=== PATIENT | female | born 1985 | race Caucasian/White ===

== ENCOUNTER → 2021-09-14 | Outpatient (CLI) | payer OTHER ==
[~2021-09-14] MED LIST: COLA100C5 PO; FLINCHW7 PO; IBUP80TA PO; OXYC1TAB23 PO; PERC5TAB PO; PERC5TAB12 PO; VITAPRTA PO
[2021-09-14 15:23] LABS: BASO % 0.4 % (0.0-1.0); EOS # 0.1 10^3/uL (0.0-0.5); EOS % 1.4 % (0.0-3.0); HEMATOCRIT 36.7 % (36.0-47.0); HEMOGLOBIN 12.2 g/dl (12.0-15.5); LYMPH # 2.5 10^3/uL (1.5-5.0); LYMPH % 25.1 % (24.0-44.0); MEAN CORPUSCULAR HEMOGLOBIN 30.5 pg (27.0-33.0); MEAN CORPUSCULAR HGB CONC 33.2 g/dl (32.0-36.5); MEAN CORPUSCULAR VOLUME 91.8 fl (80.0-96.0); MONO # 0.7 10^3/uL (0.0-0.8); MONO % 7.1 % (2.0-8.0); NEUTROPHILS # 6.6 10^3/uL (1.5-8.5); NEUTROPHILS % 65.5 % (36.0-66.0); PLATELET COUNT, AUTOMATED 300 10^3/uL (150-450)
[2021-09-14 15:47] LABS: CREATININE,RANDOM URINE 92.2 MG/DL; TOTAL PROTEIN,RANDOM URINE 21.2 MG/DL (0.0-12.0)
[2021-09-14 15:48] LABS: ALT/SGPT 31 U/L (12-78); BILIRUBIN,TOTAL 0.2 MG/DL (0.2-1.0); CREATININE FOR GFR 0.65 MG/DL (0.55-1.30); GLOMERULAR FILTRATION RATE > 60.0 (>60); LDH LACTATE DEHYDROGENASE 154 U/L (84-246); URIC ACID 3.6 MG/DL (2.6-6.0)
[2021-09-14 16:37] LABS: HEPATITIS C VIRUS ABY INDEX 0.1 INDEX (<0.8)
[2021-09-14 16:38] LABS: HIV 1&2 SCREEN CENTAUR NEGATIVE (NEGATIVE)
[2021-09-14 16:57] LABS: GC DNA AMPLIFICATION NEGATIVE (NEGATIVE)
== END ==
LOC: M PLALAB 14:05
PROVIDERS: ATTEND Advanced Practice Midwife
DX: O09.292 Supervision of pregnancy with other poor reproductive or obstetric history, second trimester (principal)

== ENCOUNTER → 2021-10-11 | Outpatient (REF) | payer OTHER | LOC: M SFHCWAGY 13:39 | PROVIDERS: ATTEND Obstetrics & Gynecology | DX: Z34.92 Encounter for supervision of normal pregnancy, unspecified, second trimester (principal) ==

== ENCOUNTER → 2021-10-11 | Outpatient (CLI) | payer OTHER | LOC: M WHC 08:39 | PROVIDERS: ATTEND Advanced Practice Midwife | DX: O09.292 Supervision of pregnancy with other poor reproductive or obstetric history, second trimester (principal); Z3A.19 19 weeks gestation of pregnancy ==

== ENCOUNTER → 2021-12-06 | Outpatient (CLI) | payer OTHER ==
[2021-12-06 15:47] LABS: HEMATOCRIT 33.8 % (36.0-47.0); HEMOGLOBIN 11.3 g/dl (12.0-15.5); MEAN CORPUSCULAR HEMOGLOBIN 31.9 pg (27.0-33.0); MEAN CORPUSCULAR HGB CONC 33.4 g/dl (32.0-36.5); MEAN CORPUSCULAR VOLUME 95.5 fl (80.0-96.0); PLATELET COUNT, AUTOMATED 285 10^3/uL (150-450); RED BLOOD COUNT 3.54 10^6/uL (4.00-5.40); WHITE BLOOD COUNT 8.1 10^3/uL (4.0-10.0)
== END ==
LOC: M PLALAB 11:30
PROVIDERS: ATTEND Advanced Practice Midwife
DX: O09.522 Supervision of elderly multigravida, second trimester (principal); Z3A.00 Weeks of gestation of pregnancy not specified

== ENCOUNTER → 2022-02-07 | Outpatient (REF) | payer OTHER | LOC: M SFHCWAGY 17:03 | PROVIDERS: ATTEND Obstetrics & Gynecology | DX: O34.211 Maternal care for low transverse scar from previous cesarean delivery (principal) ==

== ENCOUNTER → 2022-02-22 | Outpatient (CLI) | payer OTHER ==
[~2022-02-22] MED LIST changes: +ASPI81CH33 PO
== END ==
LOC: M LABSMTC 09:35
PROVIDERS: ATTEND Anesthesiology
DX: Z01.812 Encounter for preprocedural laboratory examination (principal); Z11.52 Encounter for screening for COVID-19

== ENCOUNTER → 2022-07-25 | Outpatient (REF) | payer OTHER ==
[~2022-07-25] MED LIST changes: +PERCOCET PO
== END ==
LOC: M SFHCWAGY 17:38
PROVIDERS: ATTEND Obstetrics & Gynecology
DX: Z01.419 Encounter for gynecological examination (general) (routine) without abnormal findings (principal)

== ENCOUNTER → 2024-06-09 | Outpatient (CLI) | payer OTHER ==
[2024-06-09 17:24] LABS: HEMATOCRIT 37.2 % (36.0-47.0); MEAN CORPUSCULAR HEMOGLOBIN 31.2 pg (27.0-33.0); MEAN CORPUSCULAR HGB CONC 34.9 g/dl (32.0-36.5); MEAN CORPUSCULAR VOLUME 89.2 fl (80.0-96.0); PLATELET COUNT, AUTOMATED 301 10^3/uL (150-450); RED BLOOD COUNT 4.17 10^6/uL (4.00-5.40); WHITE BLOOD COUNT 9.7 10^3/uL (4.0-10.0)
[2024-06-09 17:51] LABS: TOTAL PROTEIN,RANDOM URINE 45.5 MG/DL (0.0-14.0)
[2024-06-09 17:55] LABS: URIC ACID 4.3 MG/DL (3.1-7.8)
[2024-06-09 17:56] LABS: CREATININE,RANDOM URINE 156.1 MG/DL
[2024-06-09 17:57] LABS: LDH LACTATE DEHYDROGENASE 157 U/L (120-246)
[2024-06-09 17:58] LABS: ALT/SGPT 15 U/L (7.0-40); AST/SGOT 12 U/L (<34); BILIRUBIN,TOTAL 0.3 MG/DL (0.3-1.2); CREATININE FOR GFR 0.66 MG/DL (0.55-1.30); GLOMERULAR FILTRATION RATE > 60.0 (>60)
[2024-06-09 18:25] LABS: HIV 1&2 SCREEN NEGATIVE (NEGATIVE)
[2024-06-09 18:33] LABS: HEPATITIS C VIRUS ABY INDEX 0.13 INDEX (<0.8)
[2024-06-09 18:42] LABS: Trichomonas vaginalis (AMP) NOT DETECTED (NEGATIVE)
[2024-06-09 19:06] LABS: GC DNA AMPLIFICATION NEGATIVE (NEGATIVE)
== END ==
LOC: M PLALAB 14:48
PROVIDERS: ATTEND Advanced Practice Midwife
DX: Z34.81 Encounter for supervision of other normal pregnancy, first trimester (principal)

== ENCOUNTER → 2024-08-05 | Outpatient (CLI) | payer OTHER | LOC: M WHC 11:37 | PROVIDERS: ATTEND Nurse Practitioner Family | DX: Z34.82 Encounter for supervision of other normal pregnancy, second trimester (principal) ==

== ENCOUNTER → 2024-08-21 | Outpatient (CLI) | payer OTHER | LOC: M WHC 12:13 | PROVIDERS: ATTEND Nurse Practitioner Family | DX: O43.2 Morbidly adherent placenta (principal); O09.522 Supervision of elderly multigravida, second trimester; O09.892 Supervision of other high risk pregnancies, second trimester; O34.211 Maternal care for low transverse scar from previous cesarean delivery; Q60.5 Renal hypoplasia, unspecified; O99.512 Diseases of the respiratory system complicating pregnancy, second trimester; J45.909 Unspecified asthma, uncomplicated; O99.212 Obesity complicating pregnancy, second trimester; E66.01 Morbid (severe) obesity due to excess calories; Z3A.22 22 weeks gestation of pregnancy; Z87.59 Personal history of other complications of pregnancy, childbirth and the puerperium ==

== ENCOUNTER 2024-10-08 19:38 | Outpatient (CLI) | payer MEDICAID, OTHER ==
[~2024-10-08] VITALS: Ht 154.9 cm; Wt 115.1 kg
[2024-10-08 19:59] VITALS: BP 132/74
[2024-10-08] MEDS ORDERED: IRON27TA2 PO (20:55)
[2024-10-08] MEDS ORDERED: HOME MED LIST COMPLETE! XX SCH (20:55)
[2024-10-08 21:52] VITALS: BP 126/61
== END 2024-10-08 20:08 | disposition home or self-care (01) ==
LOC: M LDO 19:38
PROVIDERS: ATTEND Obstetrics & Gynecology
DX: O26.893 Other specified pregnancy related conditions, third trimester (principal); O09.523 Supervision of elderly multigravida, third trimester; O44.03 Complete placenta previa NOS or without hemorrhage, third trimester; O09.213 Supervision of pregnancy with history of pre-term labor, third trimester; O34.211 Maternal care for low transverse scar from previous cesarean delivery; O99.513 Diseases of the respiratory system complicating pregnancy, third trimester; O99.213 Obesity complicating pregnancy, third trimester; R10.84 Generalized abdominal pain; J45.909 Unspecified asthma, uncomplicated; E66.9 Obesity, unspecified; Z3A.29 29 weeks gestation of pregnancy
CPT/HCPCS: 59025; G0463

== ENCOUNTER → 2024-10-14 | Outpatient (CLI) | payer OTHER ==
[~2024-10-14] MED LIST changes: +IRON27TA2 PO
[2024-10-14 15:32] LABS: PLATELET COUNT, AUTOMATED 283 10^3/uL (150-450)
[2024-10-14 15:36] LABS: GLUCOSE CHALLENGE TEST 1 HOUR 116 MG/DL (LESS THAN 140)
[2024-10-14 16:05] LABS: HIV 1&2 SCREEN NEGATIVE (NEGATIVE)
[2024-10-14 16:13] LABS: HEPATITIS C VIRUS ABY INDEX 0.15 INDEX (<0.8)
[2024-10-14 18:02] LABS: TOTAL PROTEIN,RANDOM URINE 27.1 MG/DL (0.0-14.0)
[2024-10-15 15:10] LABS: Trichomonas vaginalis (AMP) NOT DETECTED (NEGATIVE)
[2024-10-15 15:34] LABS: GC DNA AMPLIFICATION NEGATIVE (NEGATIVE)
[2024-10-17 17:07] LABS: PIGF 516.1 pg/mL (Not Estab.); SFLT PIGF RATIO 1 (0-39); SFLT1 484 pg/mL (Not Estab.)
== END ==
LOC: M PLALAB 12:03
PROVIDERS: ATTEND Obstetrics & Gynecology
DX: O16.9 Unspecified maternal hypertension, unspecified trimester (principal); Z3A.00 Weeks of gestation of pregnancy not specified